=== PATIENT | male | born 1975 | race American Indian/Alaskan Native ===

== ENCOUNTER 2016-10-30 09:42 | Outpatient (CLI) | payer OTHER ==
--- NOTE | 2016-10-30 11:54 | Ultrasound Report ---
ULTRASOUND RENAL BILATERAL HISTORY: Elevated creatinine, proteinuria. TECHNIQUE: transabdominal ultrasound with color Doppler interrogation. FINDINGS: The right kidney measures 11.4 x 5.2 x 5.7cm. Right renal cortex: 1.5cm. The left kidney measures 12.4 x 6.3 x 6.5cm. Left renal cortex: 2.2cm. Scans of the kidneys show normal renal contours. There is normal central calyceal clustering and good preservation of the cortical thickness. There is no evidence of mass or hydronephrosis. There are 2 cysts in the superior and inferior right kidney measuring 1.5 cm and 2.6 cm respectively. There are 2 cysts in the mid left kidney measuring 2.7 cm and 2.0 cm. The views of the bladder and the region of the ureters appear normal. IMPRESSION: Bilateral simple renal cysts. Otherwise, unremarkable renal ultrasound. No obstructive uropathy.
== END 2016-10-30 09:43 | disposition home or self-care (01) ==
LOC: US 09:42
PROVIDERS: ATTEND Family Medicine
DX: R80.9 Proteinuria, unspecified (principal); R79.89 Other specified abnormal findings of blood chemistry
CPT/HCPCS: 76770

== ENCOUNTER 2016-11-08 06:58 | Emergency (ER) | payer OTHER ==
--- NOTE | 2016-11-08 09:12 | XRay Report ---
LEFT FINGER RADIOGRAPHS INDICATION: Left middle finger injury, pain at the MCP joint. COMPARISON: None similar. FINDINGS: AP view of the left hand with oblique and lateral projections centered on the third digit in part limited due to motion artifact, though demonstrate a horizontal fracture at the proximal aspect of the third proximal phalanx with disruption/widening of the medial cortex by approximately 2 mm on the frontal view. No significant anteroposterior displacement. Mild overlying soft tissue swelling possible. MCP joint articulation and articular surfaces appear grossly intact. Normal remainder exam. CONCLUSION: Acute fracture with slight horizontal translation involving the base/proximal aspect of the left third proximal phalanx, as detailed above. Please correlate. Thank you for the opportunity to participate in this patient's care.
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
[2016-11-08] MEDS ORDERED: PERCOCET 5/325 PO ONE (11:10)
[2016-11-08] MEDS ORDERED: NACL 0.9% IR ONE (11:10)
[2016-11-08] MEDS ORDERED: BOOSTRIX IM ONE (11:11)
[2016-11-08] MEDS ORDERED: MARCAINE 0.5% INFILTRATI NR (12:00)
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
[2016-11-08] MEDS ORDERED: ROCEPHIN IM ONE (16:37)
[2016-11-08] MEDS ORDERED: XYLOCAINE 1% MPF 5 mL INFILTRATI ONE (16:37)
[2016-11-08 17:08] VITALS: BP 146/89
== END 2016-11-08 17:10 | disposition home or self-care (01) ==
LOC: ED 06:58
DX: S62.613A Displaced fracture of proximal phalanx of left middle finger, initial encounter for closed fracture (principal); S01.81XA Laceration without foreign body of other part of head, initial encounter; S01.511A Laceration without foreign body of lip, initial encounter; S01.312A Laceration without foreign body of left ear, initial encounter; I10 Essential (primary) hypertension; E78.00 Pure hypercholesterolemia, unspecified; X99.1XXA Assault by knife, initial encounter
CPT/HCPCS: 12011; 12054; 29130; 70486; 73140; 90471; 90715; 96372; 99284; J0696